=== PATIENT | female | born 1950 | race Caucasian/White ===

== ENCOUNTER 2019-10-01 16:50 | Inpatient (IN) | payer MEDICARE, OTHER ==
[~2019-10-01] VITALS: Ht 170.2 cm; Wt 128.9 kg
--- NOTE | 2019-10-01 17:07 | NUR ---
task rn: PT CHANGING AT THIS TIME.
--- NOTE | 2019-10-01 17:10 | NUR ---
TASK RN": 69 Y/O FEMALE PRESENTS TO ED WITH C/O CHEST CONGESTION. "I'VE BEEN DEALING WITH THIS COLD SINCE BEFORE THANKSGIVING. I FINISHED MY ABX FROM MY PRIMARY CARE DR. SHE SAID I HAD BRONCHITIS. I'M JUST NOT FEELING BETTER. I CALLED MY DR TODAY, SHE SAID IF I DON'T FEEL BETTER TO SEE HER TOMORROW AND GET A CHEST XRAY AND BLOOD WORK. SO I'M HERE." NO C/O N/V/D, TRAUMA, SYNCOPE, CP, SOB. PT PLACED ON CONT PULSE OX,NIBP.
--- NOTE | 2019-10-01 17:32 | NUR ---
TASK RN: BEDSIDE REPORT TO REBECA WEISS.
--- NOTE | 2019-10-01 17:54 | NUR ---
PT RESTING IN ROOM WITH FAMILY AT BS. VSS. NO NEEDS EXPRESSED. CALL LIGHT WITHIN REACH. XR RESUTLED. CHART UP FOR RECHECK.
[2019-10-01] MEDS ORDERED: CEFTRIAXONE PMX 1GM/50ML 50 ML IVPB ONE (18:30)
[2019-10-01] MEDS ORDERED: DULO30CA2 PO (18:32)
[2019-10-01] MEDS ORDERED: LEVO200T5 PO (18:32)
[2019-10-01] MEDS ORDERED: LOSA1TAB19 PO (18:32)
[2019-10-01] MEDS ORDERED: DICL100G19 TP (18:32)
--- NOTE | 2019-10-01 18:33 | NUR ---
PT RESTING IN ROOM WITH FAMILY AT BS. VSS. PIV ESTABLISHED AND LABS AND BC X1 DRAWN. NO ORDERS FOR BC X2 AT THIS TIME. [employer] PROGRAM MANAGER TO BS TO TRANSPORT BLOOD TO LAB. NO NEEDS EXPRESSED. CALL LIGHT WITHIN REACH. PLAN TO ADMIT. AWAITING ROOM ASSIGNMENT.
[2019-10-01] MEDS ORDERED: CEFTRIAXONE PMX 1GM/50ML 50 ML ONE (18:36)
--- NOTE | 2019-10-01 18:40 | NUR ---
THIS RN SPOKE TO DR. GRIJALVA REGARDING BC. WILL ORDER BC X2 NOW. IVABX WILL BE STARTED AFTER BC X2 DRAWN.
[2019-10-01 18:47] LABS: ALANINE AMINOTRANSFERASE 47 U/L (12-78); ALBUMIN 3.4 g/dL (3.4-5.0); ANION GAP 5 mmol/L (5-15); CALCIUM 8.8 mg/dL (8.5-10.1); CHLORIDE 109 mmol/L (98-107)
[2019-10-01 18:49] LABS: ALKALINE PHOSPHATASE 144 U/L (45-117); BILIRUBIN,TOTAL 1.5 mg/dL (0.2-1.0); TOTAL PROTEIN 7.3 g/dL (6.4-8.2)
--- NOTE | 2019-10-01 19:09 | NUR ---
SECOND BLOOD CULTURE ORDERED PER VERBAL ORDER FROM DR. GRIJALVA.
[2019-10-01 19:17] LABS: BASOPHILS # (AUTO) 0.01 x10^3/uL (0-0.1); BASOPHILS % (AUTO) 0 % (0-1); EOSINOPHILS # (AUTO) 0.21 x10^3/uL (0-0.4); EOSINOPHILS % (AUTO) 3 % (1-7); LYMPHOCYTES # (AUTO) 0.98 x10^3/uL (1-3.4); LYMPHOCYTES % (AUTO) 16 % (22-44); MD SCAN; MEAN CORPUSCULAR HEMOGLOBIN 33.1 pg (27.0-34.8); MEAN CORPUSCULAR HGB CONC 33.2 g/dL (32.4-35.8); MEAN CORPUSCULAR VOLUME 99.7 fL (80-100); MEAN PLATELET VOLUME 8.4 fL (7.4-10.4); MONOCYTES # (AUTO) 0.79 x10^3/uL (0.2-0.8); MONOCYTES % (AUTO) 13 % (2-9); NEUTROPHILS # (AUTO) 4.12 x10^3/uL (1.8-6.8); NEUTROPHILS % (AUTO) 67 % (42-75); PLATELET COUNT 90 x10^3/uL (130-400); RED BLOOD COUNT 4.84 x10^6/uL (3.82-5.3); RED CELL DISTRIBUTION WIDTH 18.2 % (9.6-15.2)
--- NOTE | 2019-10-01 19:32 | NUR ---
PT RESTING IN ROOM. VSS. BC X2 COLLECTED. IVABX STARTED AFTER BC X2 DRAWN. WARM BLANKET PROVIDED FOR COMFORT. NO OTHER NEEDS EXPRESED. CALL LIGHT WITHIN REACH. AWAITING ROOM ASSINGMENT.
[2019-10-01] MEDS ORDERED: IBUPROFEN 600 MG TABLET PO PRN (22:30)
[2019-10-01] MEDS ORDERED: LIDODERM 5% PATCH TD PRN (22:30)
[2019-10-01] MEDS ORDERED: DOCUSATE 100 MG CAPSULE PO PRN (22:30)
[2019-10-01] MEDS ORDERED: ONDANSETRON ODT 4 MG PO PRN (22:30)
[2019-10-01] MEDS ORDERED: HEPARIN 5,000 UNITS/ML, 1ML ONE (23:45)
[2019-10-01] MEDS: HEPARIN 5,000 UNITS/ML, 1ML SQ SCH (23:48)
--- NOTE | 2019-10-01 23:58 | NUR ---
REPORT TO MARY JOSE
[2019-10-02 00:28] VITALS: BP 119/80
[2019-10-02 01:22] VITALS: BP 119/80
[2019-10-02] MEDS ORDERED: ALBUTEROL SULFATE 2.5 MG/3 ML NPPB PRN (03:30)
[2019-10-02 05:16] LABS: MEAN CORPUSCULAR HEMOGLOBIN 33.1 pg (27.0-34.8); MEAN CORPUSCULAR HGB CONC 32.6 g/dL (32.4-35.8); MEAN CORPUSCULAR VOLUME 101.5 fL (80-100); MEAN PLATELET VOLUME 8.9 fL (7.4-10.4); PLATELET COUNT 79 x10^3/uL (130-400); RED BLOOD COUNT 4.35 x10^6/uL (3.82-5.3); RED CELL DISTRIBUTION WIDTH 17.5 % (9.6-15.2)
[2019-10-02 05:27] LABS: ANION GAP 6 mmol/L (5-15); CALCIUM 8.3 mg/dL (8.5-10.1); CHLORIDE 111 mmol/L (98-107); CREATININE 0.78 mg/dL (0.55-1.02)
[2019-10-02 05:37] LABS: FREE T4 (FREE THYROXINE) 0.83 ng/dL (0.76-1.46)
[2019-10-02 06:10] LABS: BASOPHILS # (AUTO) 0.03 x10^3/uL (0-0.1); BASOPHILS % (AUTO) 1 % (0-1); EOSINOPHILS # (AUTO) 0.28 x10^3/uL (0-0.4); EOSINOPHILS % (AUTO) 5 % (1-7); LYMPHOCYTES % (AUTO) 19 % (22-44); MD SCAN; MONOCYTES # (AUTO) 0.69 x10^3/uL (0.2-0.8); MONOCYTES % (AUTO) 12 % (2-9); NEUTROPHILS # (AUTO) 3.76 x10^3/uL (1.8-6.8); NEUTROPHILS % (AUTO) 64 % (42-75)
[2019-10-02] MEDS: HEPARIN 5,000 UNITS/ML, 1ML SQ SCH ×2 (06:24→15:18)
[2019-10-02 07:18] VITALS: BP 122/76
[2019-10-02] MEDS: CEFTRIAXONE PMX 1GM/50ML 50 ML IV SCH ×2 (08:53→21:27)
[2019-10-02] MEDS ORDERED: FUROSEMIDE 20 MG/2 ML IV ONE (10:30)
[2019-10-02 11:32] LABS: ALBUMIN 3.3 g/dL (3.4-5.0); BILIRUBIN, DIRECT 0.7 mg/dL (0.1-0.2)
[2019-10-02 11:34] LABS: BILIRUBIN,INDIRECT 1.2 mg/dL (0.0-2.0); BILIRUBIN,TOTAL 1.9 mg/dL (0.2-1.0); TOTAL PROTEIN 7.4 g/dL (6.4-8.2)
[2019-10-02] MEDS: DOXYCYCLINE 100 MG in DEXTROSE 5% 250 ML IV SCH (12:24)
[2019-10-02 13:33] VITALS: BP 156/89
[2019-10-02] MEDS: methylPREDNISolone SOD SUCC 125 MG/2 ML IVPush SCH ×2 (13:47→22:24)
[2019-10-02 16:31] VITALS: BP 141/83
[2019-10-02] MEDS: ACETAMINOPHEN 325 MG TABLET PO PRN ×2 (16:41→22:41)
[2019-10-02 19:09] VITALS: BP 153/92
[2019-10-02] MEDS: TRAZODONE 50MG TABLET PO PRN (22:41)
[2019-10-03] MEDS: DOXYCYCLINE 100 MG in DEXTROSE 5% 250 ML IV SCH ×2 (00:35→13:46)
[2019-10-03 01:14] VITALS: BP 147/86
[2019-10-03] MEDS: HEPARIN 5,000 UNITS/ML, 1ML SQ SCH ×3 (01:34→18:32)
[2019-10-03] MEDS: methylPREDNISolone SOD SUCC 125 MG/2 ML IVPush SCH ×3 (06:08→21:58)
[2019-10-03 08:14] VITALS: BP 116/74
[2019-10-03] MEDS ORDERED: LEVOTHYROXINE 200 MCG TABLET PO SCH (09:00)
[2019-10-03] MEDS: Diclofenac Sodium (Voltaren) HOMETP SCH ×2 (09:00→21:00)
[2019-10-03] MEDS ORDERED: TEMPLATE NON-FORMULARY MED. (Losartan/Hydrochlorothiazide** (Losartan-Hctz 50-12.5 Mg Tab PO SCH (09:00)
[2019-10-03] MEDS: LEVOTHYROXINE DOSE MC SCH (09:30)
[2019-10-03 09:47] LABS: ALBUMIN 3.3 g/dL (3.4-5.0); ANION GAP 8 mmol/L (5-15); CALCIUM 9.3 mg/dL (8.5-10.1); CHLORIDE 106 mmol/L (98-107)
[2019-10-03 09:50] LABS: ALANINE AMINOTRANSFERASE 49 U/L (12-78); ALKALINE PHOSPHATASE 121 U/L (45-117); BILIRUBIN,TOTAL 1.3 mg/dL (0.2-1.0); CREATININE 0.93 mg/dL (0.55-1.02); TOTAL PROTEIN 7.3 g/dL (6.4-8.2)
[2019-10-03] MEDS: DULOXETINE 30 MG CAPSULE.DR PO SCH (10:28)
[2019-10-03] MEDS: CEFTRIAXONE PMX 1GM/50ML 50 ML IV SCH ×2 (10:28→21:58)
[2019-10-03] MEDS: HYDROCHLOROTHIAZIDE 12.5 MG CAPSULE PO SCH (10:29)
[2019-10-03] MEDS: LOSARTAN 50MG TABLET PO SCH (10:29)
[2019-10-03 10:50] LABS: BASOPHILS % (AUTO) 0 % (0-1); EOSINOPHILS % (AUTO) 0 % (1-7); LYMPHOCYTES % (AUTO) 5 % (22-44); MD SCAN; MEAN CORPUSCULAR HEMOGLOBIN 32.8 pg (27.0-34.8); MEAN CORPUSCULAR VOLUME 99.4 fL (80-100); MEAN PLATELET VOLUME 8.4 fL (7.4-10.4); MONOCYTES % (AUTO) 1 % (2-9); NEUTROPHILS # (AUTO) 6.96 x10^3/uL (1.8-6.8); NEUTROPHILS % (AUTO) 93 % (42-75); PLATELET COUNT 72 x10^3/uL (130-400); RED CELL DISTRIBUTION WIDTH 17.5 % (9.6-15.2)
[2019-10-03] MEDS: LEVOTHYROXINE 25 MCG TABLET PO SCH (13:46)
[2019-10-03] MEDS: LEVOTHYROXINE 200 MCG TABLET PO SCH (13:46)
[2019-10-03] MEDS ORDERED: DOXY-162 PO (15:32)
[2019-10-03] MEDS ORDERED: PRED10TA PO (15:32)
[2019-10-03] MEDS ORDERED: CEFD300C37 PO (15:32)
[2019-10-03] MEDS: ACETAMINOPHEN 325 MG TABLET PO PRN (15:38)
[2019-10-03 16:56] VITALS: BP 123/66
[2019-10-03] MEDS ORDERED: FLU VACC QS2019-20 36MOS UP/PF 0.5 ML IM-VACC ONE (18:00)
[2019-10-03 21:12] VITALS: BP 127/78
[2019-10-03] MEDS: TRAZODONE 50MG TABLET PO PRN (21:58)
[2019-10-04 00:46] VITALS: BP 131/79
[2019-10-04] MEDS: DOXYCYCLINE 100 MG in DEXTROSE 5% 250 ML IV SCH ×2 (02:00→02:12)
[2019-10-04] MEDS: HEPARIN 5,000 UNITS/ML, 1ML SQ SCH ×2 (03:19→11:25)
[2019-10-04] MEDS ORDERED: DOXYCYCLINE 100MG TABLET PO ONE (03:30)
[2019-10-04] MEDS: methylPREDNISolone SOD SUCC 125 MG/2 ML IVPush SCH (05:08)
[2019-10-04] MEDS: Diclofenac Sodium (Voltaren) HOMETP SCH (09:00)
[2019-10-04] MEDS: CEFTRIAXONE PMX 1GM/50ML 50 ML IV SCH (10:00)
[2019-10-04 10:50] VITALS: BP 139/76
[2019-10-04] MEDS: LEVOTHYROXINE 25 MCG TABLET PO SCH (10:54)
[2019-10-04] MEDS: LEVOTHYROXINE 200 MCG TABLET PO SCH (10:54)
[2019-10-04] MEDS: DULOXETINE 30 MG CAPSULE.DR PO SCH (10:55)
[2019-10-04] MEDS: LOSARTAN 50MG TABLET PO SCH (10:55)
[2019-10-04] MEDS: HYDROCHLOROTHIAZIDE 12.5 MG CAPSULE PO SCH (10:55)
[2019-10-04] MEDS: ACETAMINOPHEN 325 MG TABLET PO PRN (11:25)
== END 2019-10-04 14:00 | disposition home health service (06) | DRG 193 ==
LOC: ED 20:27 → EDIP 20:40 → 5SO 10-02 00:38 → 3N 10-02 16:00 → DCLOUNGE 10-04 13:40
PROVIDERS: ADMIT Internal Medicine; ATTEND Internal Medicine
DX: J18.9 Pneumonia, unspecified organism (principal); J96.01 Acute respiratory failure with hypoxia; F33.9 Major depressive disorder, recurrent, unspecified; J44.0 Chronic obstructive pulmonary disease with (acute) lower respiratory infection; Z68.41 Body mass index [BMI] 40.0-44.9, adult; J84.10 Pulmonary fibrosis, unspecified; D69.6 Thrombocytopenia, unspecified; E03.9 Hypothyroidism, unspecified; F10.21 Alcohol dependence, in remission; F17.210 Nicotine dependence, cigarettes, uncomplicated; G47.30 Sleep apnea, unspecified; H35.30 Unspecified macular degeneration; I10 Essential (primary) hypertension; K70.9 Alcoholic liver disease, unspecified; M19.90 Unspecified osteoarthritis, unspecified site; Z81.8 Family history of other mental and behavioral disorders; Z82.3 Family history of stroke; Z82.49 Family history of ischemic heart disease and other diseases of the circulatory system; Z91.14 Patient's other noncompliance with medication regimen
CPT/HCPCS: 36415; 71046; 71250; 80048; 80053; 80076; 83605; 83880; 84145; 84439; 84443; 85025; 87040; 90686; 93005; 93306; G0378; J0696; J1644; J7060; J1940; J2930; J7512

== ENCOUNTER 2019-12-28 19:18 | Inpatient (IN) | payer MEDICARE, OTHER ==
[~2019-12-28] VITALS: Ht 170.2 cm; Wt 129.9 kg
[~2019-12-28 19:18] MED LIST: CEFD300C37 PO; DICL100G19 TP; DOXY-162 PO; DULO30CA2 PO; LEVO200T5 PO; LOSA1TAB19 PO; PRED10TA PO
[2019-12-28] MEDS ORDERED: MULT1TAB57 PO (19:48)
--- NOTE | 2019-12-28 19:52 | NUR ---
THIS IS A 69 YO FEMALE COMING IN FOR INCREASED WORK OF BREATHING, SOB, COUGH AND "FEELING UNWELL" X1 WEEK. DENIES RECENT TRAVEL OR BEING AROUND ANYONE SICK. PER TRIAGE NURSE, PATIENT AT 74% ON RA IN TRIAGE, PLACED ON 5L NC IN ROOM, AT 84%, THEN 8.5L VIA OXYMASK, CURRENTLY AT 95%. LUNG SOUNDS DIMINSHED ON RIGHT SIDE, MILD EXPIRATORY WHEEZES THROUGHOUT. LEFT LUNG SOUNDS CLEAR, MILDLY DMINISHED IN LEFT BASE. C/O INCREASED WEAKNESS. STATES "HEAVINESS IN LEGS". PATIENT PLACED ON ALL MONITORING DEVICES, SINUS RHYTHM WITH BBB ON MONITOR. EKG DONE IN ROOM. VSS AT THIS TIME, NEEDS ADDRESSED. ERP TO ROOM
[2019-12-28] MEDS ORDERED: ALBUTEROL/IPRATROPIUM 2.5MG/0.5MG, 3 ML NPPB PRN (20:00)
[2019-12-28] MEDS ORDERED: SODIUM CHLORIDE FLUSH 10ML SYR IVF ONE (20:00)
[2019-12-28 20:12] LABS: ALANINE AMINOTRANSFERASE 31 U/L (12-78); ALBUMIN 3.4 g/dL (3.4-5.0); ANION GAP 9 mmol/L (5-15); CALCIUM 8.8 mg/dL (8.5-10.1); CHLORIDE 110 mmol/L (98-107)
[2019-12-28 20:17] LABS: ALKALINE PHOSPHATASE 114 U/L (45-117); BILIRUBIN,TOTAL 3.5 mg/dL (0.2-1.0); CREATININE 0.75 mg/dL (0.55-1.02); TOTAL PROTEIN 7.3 g/dL (6.4-8.2); TROPONIN I < 0.015 ng/mL (0.000-0.045)
[2019-12-28 20:30] LABS: BASOPHILS # (AUTO) 0.02 x10^3/uL (0-0.1); BASOPHILS % (AUTO) 0 % (0-1); EOSINOPHILS # (AUTO) 0.15 x10^3/uL (0-0.4); EOSINOPHILS % (AUTO) 2 % (1-7); LYMPHOCYTES % (AUTO) 13 % (22-44); MD SCAN; MEAN CORPUSCULAR HGB CONC 33.5 g/dL (32.4-35.8); MEAN CORPUSCULAR VOLUME 98.7 fL (80-100); MEAN PLATELET VOLUME 8.9 fL (7.4-10.4); MONOCYTES # (AUTO) 0.59 x10^3/uL (0.2-0.8); MONOCYTES % (AUTO) 9 % (2-9); NEUTROPHILS # (AUTO) 5.21 x10^3/uL (1.8-6.8); NEUTROPHILS % (AUTO) 76 % (42-75); PLATELET COUNT 88 x10^3/uL (130-400); RED BLOOD COUNT 4.76 x10^6/uL (3.82-5.3); RED CELL DISTRIBUTION WIDTH 17.9 % (9.6-15.2)
[2019-12-28] MEDS ORDERED: CEFTRIAXONE PMX 1GM/50ML 50 ML IV ONE (20:30)
[2019-12-28] MEDS ORDERED: AZITHROMYCIN 500 MG in SODIUM CHLORIDE 0.9% 250 ML IV ONE (20:30)
--- NOTE | 2019-12-28 20:44 | NUR ---
BLOOD CULTURES X2 DRAWN PRIOR TO ABX ADMIN. PATIENT TO CTA AT THIS TIME
[2019-12-28] MEDS ORDERED: CEFTRIAXONE PMX 1GM/50ML 50 ML ONE (20:54)
--- NOTE | 2019-12-28 21:00 | NUR ---
IV ABX STARTED
--- NOTE | 2019-12-28 21:39 | NUR ---
SECOND IV ABX STARTED, VSS, NAD, DENIES NEEDS
--- NOTE | 2019-12-28 22:50 | NUR ---
PATIENT RESTING ON GURNEY, RESPIRATIONS EVEN AND UNLABORED AT THIS TIME, PATIENT STATES "IT'S A LOT EASIER TO BREATHE, I FEEL A LITTLE BETTER". VSS, ALL MEDS COMPLETE.
--- NOTE | 2019-12-28 23:05 | NUR ---
[facility] ([facility]): [phone]
[2019-12-28] MEDS ORDERED: OMNIPAQUE 350 MG/ML, 100ML BOTTLE ONE (23:37)
--- NOTE | 2019-12-28 23:43 | NUR ---
REPORT GIVEN TO REBECA DOBSON. PLAN OF CARE DISCUSSED
[2019-12-29] MEDS ORDERED: ONDANSETRON ODT 4 MG PO PRN
[2019-12-29] MEDS ORDERED: LABETALOL 5MG/ML, 20ML IVPush PRN
[2019-12-29] MEDS ORDERED: OXYcodone IR 5MG TABLET PO PRN
[2019-12-29] MEDS ORDERED: ONDANSETRON 2MG/ML, 2ML IVPush PRN
[2019-12-29] MEDS ORDERED: BISACODYL 10 MG SUPP PR PRN
[2019-12-29] MEDS ORDERED: POLYETHYLENE GLYCOL 17 GM PACKET PO PRN
[2019-12-29] MEDS ORDERED: ENALAPRILAT 1.25 MG/ML, 2ML IVPush PRN
[2019-12-29 00:20] VITALS: BP 145/82
[2019-12-29] MEDS: SYNTHROID MC SCH ×2 (01:00→09:00)
[2019-12-29] MEDS: HEPARIN 5,000 UNITS/ML, 1ML SQ SCH ×3 (01:53→17:30)
[2019-12-29 07:37] VITALS: BP 119/72
[2019-12-29] MEDS ORDERED: FUROSEMIDE 40 MG/4 ML IV ONE (08:00)
[2019-12-29] MEDS ORDERED: POTASSIUM CHLORIDE 20 MEQ TAB.ER.PRT PO ONE (08:00)
[2019-12-29 08:48] LABS: ALANINE AMINOTRANSFERASE 28 U/L (12-78); ANION GAP 7 mmol/L (5-15); CALCIUM 8.3 mg/dL (8.5-10.1); CHLORIDE 112 mmol/L (98-107); CREATININE 0.66 mg/dL (0.55-1.02)
[2019-12-29 08:50] LABS: ALKALINE PHOSPHATASE 99 U/L (45-117); BILIRUBIN,TOTAL 2.1 mg/dL (0.2-1.0); TOTAL PROTEIN 6.4 g/dL (6.4-8.2)
[2019-12-29] MEDS ORDERED: LEVOTHYROXINE 25 MCG TABLET PO SCH (09:00)
[2019-12-29] MEDS ORDERED: HYDROCHLOROTHIAZIDE 12.5 MG CAPSULE PO SCH (09:00)
[2019-12-29] MEDS: MULTIVITAMIN 1 TABLET PO SCH (09:36)
[2019-12-29] MEDS: DULOXETINE 30 MG CAPSULE.DR PO SCH (09:36)
[2019-12-29] MEDS: LOSARTAN 50MG TABLET PO SCH (09:36)
[2019-12-29] MEDS: SENNA/DOCUSATE TABLET PO SCH (09:36)
[2019-12-29] MEDS ORDERED: LIDOCAINE 1%, 10ML ONE (10:55)
[2019-12-29] MEDS ORDERED: LORazepam 2 MG/ML, 1ML IVPush ONE (11:30)
[2019-12-29] MEDS ORDERED: LORazepam 2 MG/ML, 1ML IVPush PRN (12:00)
[2019-12-29 12:12] LABS: INTERNATIONAL NORMALIZED RATIO 1.26 (0.93-1.1); PROTHROMBIN TIME 13.4 Seconds (9.6-11.5)
[2019-12-29 14:00] VITALS: BP 112/72
[2019-12-29 18:51] VITALS: BP 109/57
[2019-12-30] MEDS: HEPARIN 5,000 UNITS/ML, 1ML SQ SCH ×3 (01:30→17:52)
[2019-12-30 01:36] VITALS: BP 117/78
[2019-12-30] MEDS: LEVOTHYROXINE 200 MCG TABLET PO SCH (06:15)
[2019-12-30] MEDS: LEVOTHYROXINE 25 MCG TABLET PO SCH (06:15)
[2019-12-30 06:29] LABS: ANION GAP 6 mmol/L (5-15); CALCIUM 8.3 mg/dL (8.5-10.1); CHLORIDE 110 mmol/L (98-107)
[2019-12-30 06:30] LABS: CREATININE 0.73 mg/dL (0.55-1.02)
[2019-12-30 07:24] VITALS: BP 126/78
[2019-12-30] MEDS: SPIRONOLACTONE 50 MG TABLET PO SCH (09:00)
[2019-12-30] MEDS: SENNA/DOCUSATE TABLET PO SCH (09:21)
[2019-12-30] MEDS: MULTIVITAMIN 1 TABLET PO SCH (09:21)
[2019-12-30] MEDS: DULOXETINE 30 MG CAPSULE.DR PO SCH (09:21)
[2019-12-30] MEDS: FUROSEMIDE 40 MG TABLET PO SCH (09:22)
[2019-12-30] MEDS: LOSARTAN 50MG TABLET PO SCH (09:22)
[2019-12-30 12:26] VITALS: BP 112/60
[2019-12-30] MEDS ORDERED: LIDOCAINE 1%, 10ML ONE (13:21)
[2019-12-30 14:30] VITALS: BP 109/75
[2019-12-30 16:35] LABS: FREE T4 (FREE THYROXINE) 0.75 ng/dL (0.76-1.46)
[2019-12-30] MEDS: THYROID 30 MG TABLET PO SCH (19:25)
[2019-12-30 21:20] VITALS: BP 95/58
[2019-12-30] MEDS: ACETAMINOPHEN 325 MG TABLET PO PRN (21:35)
[2019-12-31 00:39] VITALS: BP 95/61
[2019-12-31] MEDS: HEPARIN 5,000 UNITS/ML, 1ML SQ SCH ×3 (02:02→17:52)
[2019-12-31 03:57] VITALS: BP 98/65
[2019-12-31 05:09] LABS: MEAN CORPUSCULAR HEMOGLOBIN 32.5 pg (27.0-34.8); MEAN CORPUSCULAR HGB CONC 32.6 g/dL (32.4-35.8); MEAN CORPUSCULAR VOLUME 99.8 fL (80-100); RED BLOOD COUNT 4.04 x10^6/uL (3.82-5.3); RED CELL DISTRIBUTION WIDTH 17.9 % (9.6-15.2)
[2019-12-31 05:20] LABS: ALBUMIN 2.7 g/dL (3.4-5.0); ANION GAP 5 mmol/L (5-15); CALCIUM 8.2 mg/dL (8.5-10.1); CHLORIDE 109 mmol/L (98-107)
[2019-12-31 05:21] LABS: CREATININE 0.73 mg/dL (0.55-1.02)
[2019-12-31 05:58] LABS: BASOPHILS # (AUTO) 0.02 x10^3/uL (0-0.1); BASOPHILS % (AUTO) 1 % (0-1); EOSINOPHILS % (AUTO) 6 % (1-7); LYMPHOCYTES % (AUTO) 24 % (22-44); MD SCAN; MONOCYTES # (AUTO) 0.57 x10^3/uL (0.2-0.8); MONOCYTES % (AUTO) 11 % (2-9); NEUTROPHILS # (AUTO) 3.04 x10^3/uL (1.8-6.8); NEUTROPHILS % (AUTO) 59 % (42-75); PLATELET COUNT 70 x10^3/uL (130-400)
[2019-12-31] MEDS: LEVOTHYROXINE 25 MCG TABLET PO SCH (06:01)
[2019-12-31] MEDS: THYROID 30 MG TABLET PO SCH (06:01)
[2019-12-31] MEDS: LEVOTHYROXINE 200 MCG TABLET PO SCH (06:01)
[2019-12-31 06:54] VITALS: BP 106/62
[2019-12-31] MEDS: SPIRONOLACTONE 50 MG TABLET PO SCH (09:00)
[2019-12-31] MEDS: LOSARTAN 50MG TABLET PO SCH (09:00)
[2019-12-31] MEDS: FUROSEMIDE 40 MG TABLET PO SCH (09:00)
[2019-12-31] MEDS: MULTIVITAMIN 1 TABLET PO SCH (09:02)
[2019-12-31] MEDS: SENNA/DOCUSATE TABLET PO SCH (09:02)
[2019-12-31] MEDS: DULOXETINE 30 MG CAPSULE.DR PO SCH (09:03)
[2019-12-31 13:15] VITALS: BP 120/70
[2019-12-31 18:38] VITALS: BP 110/64
[2020-01-01 01:40] VITALS: BP 100/62
[2020-01-01] MEDS: HEPARIN 5,000 UNITS/ML, 1ML SQ SCH ×3 (02:42→17:56)
[2020-01-01] MEDS: THYROID 30 MG TABLET PO SCH (06:34)
[2020-01-01] MEDS: LEVOTHYROXINE 25 MCG TABLET PO SCH (06:34)
[2020-01-01] MEDS: LEVOTHYROXINE 200 MCG TABLET PO SCH (06:34)
[2020-01-01 07:08] VITALS: BP 109/66
[2020-01-01] MEDS: SENNA/DOCUSATE TABLET PO SCH (08:50)
[2020-01-01] MEDS: SPIRONOLACTONE 50 MG TABLET PO SCH (08:50)
[2020-01-01] MEDS: MULTIVITAMIN 1 TABLET PO SCH (08:51)
[2020-01-01] MEDS: LOSARTAN 50MG TABLET PO SCH ×2 (08:51→09:00)
[2020-01-01] MEDS: FUROSEMIDE 40 MG TABLET PO SCH (08:51)
[2020-01-01] MEDS: DULOXETINE 30 MG CAPSULE.DR PO SCH (08:52)
[2020-01-01 14:44] VITALS: BP 114/67
[2020-01-01] MEDS: ACETAMINOPHEN 325 MG TABLET PO PRN (15:53)
[2020-01-01 18:43] VITALS: BP 118/70
[2020-01-02 01:10] VITALS: BP 126/61
[2020-01-02] MEDS: HEPARIN 5,000 UNITS/ML, 1ML SQ SCH ×2 (02:00→10:00)
[2020-01-02 05:48] LABS: ALBUMIN 2.7 g/dL (3.4-5.0); ANION GAP 4 mmol/L (5-15); CALCIUM 8.6 mg/dL (8.5-10.1); CHLORIDE 105 mmol/L (98-107); CREATININE 0.57 mg/dL (0.55-1.02); MEAN CORPUSCULAR HEMOGLOBIN 32.7 pg (27.0-34.8); MEAN CORPUSCULAR HGB CONC 32.9 g/dL (32.4-35.8); MEAN CORPUSCULAR VOLUME 99.4 fL (80-100); PLATELET COUNT 58 x10^3/uL (130-400); RED BLOOD COUNT 3.98 x10^6/uL (3.82-5.3); RED CELL DISTRIBUTION WIDTH 18.1 % (9.6-15.2)
[2020-01-02 06:09] LABS: BASOPHILS # (AUTO) 0.02 x10^3/uL (0-0.1); BASOPHILS % (AUTO) 1 % (0-1); EOSINOPHILS # (AUTO) 0.31 x10^3/uL (0-0.4); EOSINOPHILS % (AUTO) 7 % (1-7); LYMPHOCYTES # (AUTO) 0.87 x10^3/uL (1-3.4); LYMPHOCYTES % (AUTO) 20 % (22-44); MD SCAN; MONOCYTES # (AUTO) 0.54 x10^3/uL (0.2-0.8); MONOCYTES % (AUTO) 12 % (2-9); NEUTROPHILS # (AUTO) 2.71 x10^3/uL (1.8-6.8); NEUTROPHILS % (AUTO) 61 % (42-75)
[2020-01-02] MEDS: LEVOTHYROXINE 25 MCG TABLET PO SCH (06:21)
[2020-01-02] MEDS: LEVOTHYROXINE 200 MCG TABLET PO SCH (06:21)
[2020-01-02] MEDS: THYROID 30 MG TABLET PO SCH (06:22)
[2020-01-02 07:23] VITALS: BP 107/62
[2020-01-02] MEDS: FUROSEMIDE 40 MG TABLET PO SCH (09:14)
[2020-01-02] MEDS: DULOXETINE 30 MG CAPSULE.DR PO SCH (09:14)
[2020-01-02] MEDS: SENNA/DOCUSATE TABLET PO SCH (09:14)
[2020-01-02] MEDS: LOSARTAN 50MG TABLET PO SCH (09:15)
[2020-01-02] MEDS: MULTIVITAMIN 1 TABLET PO SCH (09:15)
[2020-01-02] MEDS: SPIRONOLACTONE 50 MG TABLET PO SCH (09:16)
[2020-01-02 09:19] VITALS: BP 111/73
[2020-01-02] MEDS ORDERED: SPIR50TA PO (10:55)
[2020-01-02] MEDS ORDERED: THYR30TA PO (10:55)
[2020-01-02 13:05] VITALS: BP 110/75
== END 2020-01-02 13:10 | disposition home or self-care (01) | DRG 189 ==
LOC: ED 23:40 → EDIP 12-29 → 4NE 12-29 00:07
PROVIDERS: ADMIT Internal Medicine; ATTEND Family Medicine
PROC: 0W993ZZ Drainage of Right Pleural Cavity, Percutaneous Approach (ICD-10-PCS; principal; 2019-12-30)
DX: J96.21 Acute and chronic respiratory failure with hypoxia (principal); J18.9 Pneumonia, unspecified organism; K76.6 Portal hypertension; K70.30 Alcoholic cirrhosis of liver without ascites; D69.59 Other secondary thrombocytopenia; E03.9 Hypothyroidism, unspecified; F10.21 Alcohol dependence, in remission; G47.33 Obstructive sleep apnea (adult) (pediatric); H35.30 Unspecified macular degeneration; M19.90 Unspecified osteoarthritis, unspecified site; F32.9 Major depressive disorder, single episode, unspecified; I10 Essential (primary) hypertension; Z96.651 Presence of right artificial knee joint; Z82.3 Family history of stroke; Z82.49 Family history of ischemic heart disease and other diseases of the circulatory system; Z87.01 Personal history of pneumonia (recurrent); Z87.891 Personal history of nicotine dependence; Z91.14 Patient's other noncompliance with medication regimen; Z99.81 Dependence on supplemental oxygen; Z79.899 Other long term (current) drug therapy; Z81.8 Family history of other mental and behavioral disorders
CPT/HCPCS: 32555; 36415; 36600; 71045; 71275; 76705; 80048; 80053; 80069; 82042; 82803; 83605; 83615; 83735; 83880; 83986; 84157; 84439; 84443; 84481; 84484; 85025; 85610; 87040; 87070; 87075; 87102; 87116; 87205; 87206; 88112; 88305; 89051; 93005; 94640; 96365; 96367; 96375; 99285; G0378; J0456; J0696; J1644; J1940; Q9967; J2060; J7050